=== PATIENT | male | born 1950 | race Caucasian/White ===

== ENCOUNTER → 2022-04-12 08:52 | Outpatient (BNVA) | payer SELFPAY | PROVIDERS: PCP Family Medicine; Visit Provider Nurse Practitioner Family | DX: Z96.0 Presence of urogenital implants (principal); R33.9 Retention of urine, unspecified; N20.0 Calculus of kidney | CPT/HCPCS: 74018 ==

== ENCOUNTER → 2022-05-21 08:06 | Outpatient (BNVA) | payer MEDICAID, SELFPAY | PROVIDERS: PCP Family Medicine; Visit Provider Urology | DX: R33.9 Retention of urine, unspecified (principal) | CPT/HCPCS: 52000; 99213 ==

== ENCOUNTER → 2022-06-09 09:05 | Outpatient (BNVA) | payer MEDICARE, MEDICAID, SELFPAY | PROVIDERS: PCP Family Medicine; Visit Provider Nurse Practitioner Family | DX: R33.9 Retention of urine, unspecified (principal) | CPT/HCPCS: 51700; 99213 ==

== ENCOUNTER → 2022-12-13 15:37 | Outpatient (BNVA) | payer MEDICARE, MEDICAID, SELFPAY | PROVIDERS: PCP Family Medicine; Visit Provider Urology | DX: R33.9 Retention of urine, unspecified (principal) | CPT/HCPCS: 51798; 81003; 99213 ==

== ENCOUNTER 2023-01-06 18:24 | Emergency (ER) | payer MEDICARE, MEDICAID, SELFPAY ==
[2023-01-06 18:39] VITALS: BMI 23.2
--- NOTE | 2023-01-06 18:52 | CTR_ITS ---
PROCEDURE INFORMATION: Exam: CT Abdomen And Pelvis Without Contrast Exam date and time: 01/06/2023 7:04 PM Age: 72 years old Clinical indication: Prior surgery; Surgery date: 6+ months; Patient HX: HX of ruptured appy resulting in ileostomy about 1 year ago, recent abdominal bloating; Additional info: Abd pain TECHNIQUE: Imaging protocol: Computed tomography of the abdomen and pelvis without contrast. Radiation optimization: All CT scans at this facility use at least one of these dose optimization techniques: automated exposure control; mA and/or kV adjustment per patient size (includes targeted exams where dose is matched to clinical indication); or iterative reconstruction. REPORTING DATA: Count of CT and Cardiac NM exams in prior 12 months: This patient has received 0 known CTs and 0 known cardiac nuclear medicine studies in the 12 months prior to the current study. COMPARISON: No relevant prior studies available. RADIATION DOSE METRICS: Total DLP (mGy-cm): 554.53 FINDINGS: Lungs: Emphysematous changes. Right lower lobe atelectasis. Liver: Normal. No mass. Gallbladder and bile ducts: Cholelithiasis. Pancreas: Normal. No ductal dilation. Spleen: Normal. No splenomegaly. Adrenal glands: Normal. No mass. Kidneys and ureters: Normal. No hydronephrosis. Stomach and bowel: Diverticulosis without diverticulitis. Appendix: No evidence of appendicitis. Intraperitoneal space: Unremarkable. No free air. No significant fluid collection. Vasculature: Unremarkable. No abdominal aortic aneurysm. Lymph nodes: Unremarkable. No enlarged lymph nodes. Urinary bladder: Prostate gland enlarged indenting the base of the urinary bladder. Reproductive: See Urinary bladder finding. Bones/joints: Unremarkable. No acute fracture. Soft tissues: Right abdominal ostomy with some herniated bowel loops into the subcutaneous fat without dilation or inflammation. Small bilateral greater than right fat containing inguinal hernias. CT/CT abdomen pelvis wo con [id number] IMPRESSION: 1. Negative for acute inflammatory process in the abdomen pelvis. 2. Emphysematous changes. 3. Right lower lobe atelectasis. 4. Cholelithiasis. 5. Diverticulosis without diverticulitis. 6. Prostate gland enlarged indenting the base of the urinary bladder. 7. Small bilateral greater than right fat containing inguinal hernias. 8. Right abdominal ostomy with some herniated bowel loops into the subcutaneous fat without dilation or inflammation.
--- NOTE | 2023-01-06 18:58 | W.ED.ABDPA2 ---
HPI - Abdominal Pain General: Chief Complaint: Abdominal Pain Stated Complaint: ABDOMINAL DISTENTION/ ILIOSTOMY Time Seen by Provider: 01/06/23 18:40 Source: patient and EMS Mode of arrival: EMS Limitations: no limitations History of Present Illness: 72-year-old male is here from longterm he has a history of an ostomy in the past nursing was concerned he felt his abdomen was getting distended he has stool in his ostomy at this point he denies any pain he denies any fevers denies any worsening or improving factors does have some history of some dementia. Associated Symptoms: Denies chills, diarrhea, dysuria, fever(s), nausea and vomiting Review of Systems Const: Denies: fever(s), chills, body aches or change in appetite Eyes: Denies: blurry vision or eye discomfort ENMT: Denies: throat pain or dental pain Card: Denies: chest pain Resp: Denies: dyspnea GI: Denies: abdominal pain, nausea, vomiting or diarrhea : Denies: dysuria Musc: Denies: neck pain or back pain Skin/Breast: Denies: rash Neuro: Denies: headache(s) Psych: Denies: depression Surya/Lymph: Denies: easy bruising All/Imm: Denies: urticaria PFSH ED PFSH: Medical History CVA (cerebral vascular accident) Hypertension Hypothyroidism Urinary retention Surgical History Hx of ileostomy Family History Father , UNKNOWN No problems noted. Mother , AT AGE 64 No problems noted. Social History Smoking and tobacco status: never smoked Alcohol intake: never Marital status: Single Current occupational status: disabled Physical Exam Const: COMMON NORMALS: no acute distress, patient oriented x3 and healthy appearing HENMT: COMMON NORMALS: normocephalic and atraumatic HEAD & SCALP: normocephalic and atraumatic Eye: COMMON NORMALS: Equal, round and reactive pupils present and EOMs intact bilaterally PUPIL: Yes Equal, round and reactive pupils present Neck/C-Spine: COMMON NORMALS: full ROM and supple Chest: COMMONS NORMALS: normal inspection of the chest and normal palpation of entire chest wall Resp: COMMON NORMALS: normal respiratory effort, No retractions, No use of accessory muscles and clear to auscultation bilaterally AUSCULTATION: clear to auscultation bilaterally Cardio: COMMON NORMALS: regular rate, regular rhythm and No murmurs present (Cardio) RATE: regular rate RHYTHM: regular rhythm GI: COMMON NORMALS: Soft to palpation, non-tender and no masses PALPATION: Yes Soft to palpation OTHER: Patient does have ostomy his stool in the bag he has some mild distention to his abdomen no tenderness abdomen soft Extremity: COMMON NORMALS: normal to inspection and full ROM Neuro: COMMON NORMALS: patient oriented x3, moves all extremities and no focal motor deficits Psych: COMMON NORMALS: mental status grossly normal, Normal thought process present and cooperative THOUGHT PROCESS: Normal thought process present Skin: COMMON NORMALS: no rashes or lesions noted and no wounds GENERAL SKIN EXAM: no rashes or lesions noted Course Vital Signs: Vital signs: Vital Signs Pulse Rate 63 01/06/23 19:04 Respiratory Rate 22 H 01/06/23 19:04 Blood Pressure 145/74 01/06/23 19:04 Pulse Oximetry 96 01/06/23 19:04 MDM - Abdominal Pain Medical Decision Making Patient presents here with some slight abdominal distention exam here is benign his belly is soft he has no pain CT scan showed no acute findings he does have a slight hernia but no signs of obstruction I did speak to Dr. Denny will get him follow-up. He is return if worsening. Lab Data 01/06/23 18:49 01/06/23 18:49 Labs/Radiology: Radiology Impressions Abdomen/Pelvis CT 01/06/23 18:52 IMPRESSION: 1. Negative for acute inflammatory process in the abdomen pelvis. 2. Emphysematous changes. 3. Right lower lobe atelectasis. 4. Cholelithiasis. 5. Diverticulosis without diverticulitis. 6. Prostate gland enlarged indenting the base of the urinary bladder. 7. Small bilateral greater than right fat containing inguinal hernias. 8. Right abdominal ostomy with some herniated bowel loops into the subcutaneous fat without dilation or inflammation. Laboratory Results WBC 11.3 10^3/uL (4.0-10.0) H 01/06/23 18:49 RBC 4.03 10^6/uL (4.1-5.3) L 01/06/23 18:49 Hgb 12.6 g/dL (11.7-16.6) 01/06/23 18:49 Hct 40.6 % (42.0-52.0) L 01/06/23 18:49 MCV 100.7 fl (80-94) H 01/06/23 18:49 MCH 31.3 pg (28.0-34.0) 01/06/23 18:49 MCHC 31.0 g/dL (30.0-36.0) 01/06/23 18:49 RDW 14.1 % (12.1-15.1) 01/06/23 18:49 Plt Count 212 10^3/cmm (130-400) 01/06/23 18:49 MPV 10.8 fL (7.4-10.4) H 01/06/23 18:49 Neut % (Auto) 61.2 % 01/06/23 18:49 Lymph % (Auto) 22.0 % 01/06/23 18:49 [place] % (Auto) 8.6 % 01/06/23 18:49 Eos % (Auto) 6.9 % 01/06/23 18:49 Baso % (Auto) 1.0 % 01/06/23 18:49 Neut # (Auto) 6.95 10^3/uL (1.8-7.7) 01/06/23 18:49 Lymph # (Auto) 2.5 10^3/uL (0.8-4.8) 01/06/23 18:49 [place] # (Auto) 1.0 10^3/uL (0.2-0.9) H 01/06/23 18:49 Eos # (Auto) 0.8 10^3/uL (0.0-0.8) 01/06/23 18:49 Baso # (Auto) 0.1 10^3/uL (0.0-0.1) 01/06/23 18:49 Nucleated RBC % (auto) 0 % 01/06/23 18:49 Nucleated RBCs # 0.0 /100WBC 01/06/23 18:49 Sodium 143 mmol/L (136-145) 01/06/23 18:49 Potassium 4.9 mmol/L (3.5-5.1) 01/06/23 18:49 Chloride 111 mmol/L (98-107) H 01/06/23 18:49 Carbon Dioxide 19 mmol/L (22-29) L 01/06/23 18:49 Anion Gap 17.9 (5-19) 01/06/23 18:49 BUN 36 mg/dL (8-23) H 01/06/23 18:49 Creatinine 2.3 mg/dL (0.7-1.2) H 01/06/23 18:49 GFR Calculation Not Reportable 01/06/23 18:49 Glucose 100 mg/dL (65-115) 01/06/23 18:49 Calculated Osmolality 304 mOsm/kg (285-295) H 01/06/23 18:49 Calcium 8.4 mg/dL (8.5-10.5) L 01/06/23 18:49 Total Bilirubin 0.2 mg/dL (0.15-1.2) 01/06/23 18:49 AST 22 U/L (0-40) 01/06/23 18:49 ALT 28 U/L (0-41) 01/06/23 18:49 Alkaline Phosphatase 109 U/L (40-130) 01/06/23 18:49 Total Protein 7.6 g/dL (6.6-8.7) 01/06/23 18:49 Albumin 4.2 g/dL (3.5-5.2) 01/06/23 18:49 Globulin 3.4 g/dL (1.3-4.6) 01/06/23 18:49 Lipase 92 U/L (13-60) H 01/06/23 18:49 Discharge Plan Discharge Patient Disposition: Home Clinical Impression: Abdominal pain, Hernia Condition: Stable Prescriptions: No Action sulfamethoxazole-trimethoprim [Bactrim DS] 800-160 mg tablet 1 tab PO BID nitrofurantoin monohyd/m-cryst [Macrobid] 100 mg capsule 100 mg PO BID Rx Instructions: must administer with a meal/food Natural Tears (PF) 0.1-0.3 % dropperette 1 drp ophthalmic (eye) TID PRN multivitamin Tablet 1 tab PO DAILY albuterol sulfate 1.25 mg/3 mL solution for nebulization 1.25 mg inhalation Q4H PRN aspirin [Adult Aspirin Regimen] 81 mg tablet,delayed release (DR/EC) 81 mg PO DAILY finasteride 5 mg tablet 5 mg PO DAILY hydralazine 50 mg tablet 50 mg PO BID levothyroxine 50 mcg capsule 50 mcg PO DAILY metoprolol succinate 100 mg tablet extended release 24 hr 100 mg PO BID clopidogrel [Plavix] 75 mg tablet 75 mg PO DAILY potassium chloride 10 mEq tablet extended release 10 meq PO DAILY omeprazole magnesium [Prilosec OTC] 20 mg tablet,delayed release (DR/EC) 20 mg PO DAILY acetaminophen [Tylenol] 325 mg capsule 325 mg PO QID PRN budesonide 0.5 mg/2 mL suspension for nebulization 0.5 mg inhalation BID ipratropium-albuterol 0.5 mg-3 mg(2.5 mg base)/3 mL solution for nebulization 3 ml inhalation Q6H PRN tamsulosin 0.4 mg capsule 0.4 mg PO .at bedtime Qty: 30 12RF Discharge Orders: Discharge ED (Routine); Ordered 01/06/23 Ordered By: Hannah Tai Referrals: Rajinder Denny DO [Physician] - 1-3 days Desean Rice [Primary Care Provider] - Discharge Diet: Advance as tolerated Discharge Activity: Resume usual activity Patient Instructions: Abdominal Pain (ED) Coding Level of Care Code ED Post Secondary Professional for Garth Tate
[2023-01-06 18:59] LABS: Basophils # 0.1 10^3/uL (0.0-0.1); Eosinophils # 0.8 10^3/uL (0.0-0.8); Eosinophils % 6.9 %; Hematocrit 40.6 % (42.0-52.0); Hemoglobin 12.6 g/dL (11.7-16.6); Lymphocytes # 2.5 10^3/uL (0.8-4.8); Mean Corpuscular Hemoglobin 31.3 pg (28.0-34.0); Mean Corpuscular Volume 100.7 fl (80-94); Mean Platelet Volume 10.8 fL (7.4-10.4); Monocytes % 8.6 %; Neutrophils # 6.95 10^3/uL (1.8-7.7); Neutrophils % 61.2 %; Nucleated Red Blood Cells % 0 %; Platelet Count 212 10^3/cmm (130-400); Red Blood Count 4.03 10^6/uL (4.1-5.3); Red Cell Distribution Width 14.1 % (12.1-15.1); White Blood Count 11.3 10^3/uL (4.0-10.0)
[2023-01-06 19:04] VITALS: BP 145/74; PULSE 63; RESP 22; O2SAT 96
[2023-01-06 19:20] LABS: Alanine Aminotransferase 28 U/L (0-41); Albumin Level 4.2 g/dL (3.5-5.2); Alkaline Phosphatase 109 U/L (40-130); Anion Gap 17.9 (5-19); Aspartate Amino Transferase 22 U/L (0-40); Blood Urea Nitrogen 36 mg/dL (8-23); Calcium 8.4 mg/dL (8.5-10.5); Carbon Dioxide 19 mmol/L (22-29); Chloride 111 mmol/L (98-107); Globulin 3.4 g/dL (1.3-4.6); Glucose 100 mg/dL (65-115); Lipase 92 U/L (13-60); Osmolality Calculated 304 mOsm/kg (285-295); Potassium 4.9 mmol/L (3.5-5.1); Sodium 143 mmol/L (136-145); Total Bilirubin 0.2 mg/dL (0.15-1.2); Total Protein 7.6 g/dL (6.6-8.7)
[2023-01-06 20:48] VITALS: BP 131/78; PULSE 64; RESP 19; O2SAT 97
== END 2023-01-06 20:54 | disposition home or self-care (01) ==
PROVIDERS: Emergency Provider Emergency Medicine; PCP Family Medicine
DX: K40.20 Bilateral inguinal hernia, without obstruction or gangrene, not specified as recurrent (principal); K94.09 Other complications of colostomy; K80.20 Calculus of gallbladder without cholecystitis without obstruction; K57.90 Diverticulosis of intestine, part unspecified, without perforation or abscess without bleeding; Z79.82 Long term (current) use of aspirin; Z86.73 Personal history of transient ischemic attack (TIA), and cerebral infarction without residual deficits; I10 Essential (primary) hypertension
CPT/HCPCS: 74176; 80053; 83690; 85025; 99284

== ENCOUNTER → 2023-02-02 13:27 | Outpatient (BNVA) | payer MEDICARE, MEDICAID, SELFPAY | PROVIDERS: PCP Family Medicine; Visit Provider Surgery | DX: K43.5 Parastomal hernia without obstruction or gangrene (principal) | CPT/HCPCS: 99203 ==

== ENCOUNTER 2024-03-07 02:53 | Emergency (ER) | payer MEDICARE, MEDICAID, SELFPAY ==
[2024-03-07] VITALS (11 sets, daily range): BP systolic 119–181; BP diastolic 55–87; PULSE 58–78; RESP 17–22; TEMP 37.1; O2SAT 90–96; BMI 32.3
--- NOTE | 2024-03-07 02:57 | CTR_ITS ---
PROCEDURE INFORMATION: Exam: CT Abdomen And Pelvis With Contrast Exam date and time: 03/07/2024 3:55 AM Age: 74 years old Clinical indication: Abdominal pain; Prior surgery; Surgery date: 6+ months; Surgery type: Ileostomy, appy; Additional info: Abd pain TECHNIQUE: Imaging protocol: Computed tomography of the abdomen and pelvis with contrast. Radiation optimization: All CT scans at this facility use at least one of these dose optimization techniques: automated exposure control; mA and/or kV adjustment per patient size (includes targeted exams where dose is matched to clinical indication); or iterative reconstruction. Contrast material: OMNI 350; Contrast volume: 100 ml; Contrast route: INTRAVENOUS (IV); COMPARISON: CT abdomen pelvis wo con [id number] 01/06/2023 7:04 PM RADIATION DOSE METRICS: Total DLP (mGy-cm): 929.3 FINDINGS: Liver: Normal. No mass. Gallbladder and bile ducts: Abnormal density within the gallbladder. Findings may be related gallstones/sludge. Neoplasm not excluded. Evaluation with ultrasound for better delineation. Pancreas: Normal. No ductal dilation. Spleen: Normal. No splenomegaly. Adrenal glands: Normal. No mass. Kidneys and ureters: Normal. No hydronephrosis. Stomach and bowel: Ileostomy in the right lower quadrant with peristomal herniation of bowel. Mild dilatation with small bowel feces sign and inflammation of the bowel proximal and within the ostomy. Decompression of the bowel distal to the ostomy. Appendix: The appendix is surgically removed. Intraperitoneal space: Unremarkable. No free air. No significant fluid collection. Vasculature: Atherosclerotic change of the abdominal vasculature. Lymph nodes: Unremarkable. No enlarged lymph nodes. Urinary bladder: Unremarkable as visualized. Reproductive: Unremarkable as visualized. Bones/joints: Unremarkable. No acute fracture. Soft tissues: Fat containing inguinal hernias. CT/CT abdomen pelvis w con* [id number] IMPRESSION: 1. Ileostomy in the right lower quadrant with mild dilatation, small bowel feces sign and inflammation of the bowel proximal and within the ostomy. Decompression of the bowel distal to the ostomy findings are suggestive peristomal hernia with bowel obstruction at the ostomy site. 2. Abnormal density within the gallbladder. This may be related to gallstones/sludge. Neoplasm not excluded. Further evaluation with ultrasound is recommended for better delineation.
--- NOTE | 2024-03-07 02:58 | ECG_ITS ---
[facility] Test Date: 2024-03-07 Pat Name: Mike Garcia Department: Room: Gender: Male Marketing Research Analyst: : 1950 Requested By: Hannah Tai Order Number: [id number] Wyatt MD: Bk Lafleur M.D. Measurements Intervals [place] Rate: 67 P: 44 [place]: 157 QRS: -17 QRSD: 110 T: 54 QT: 389 QTc: 411 Interpretive Statements SINUS RHYTHM INCOMPLETE RIGHT BUNDLE BRANCH BLOCK [90+ ms QRS DURATION, TERMINAL R IN V1/V2, 40+ ms S IN I/aVL/V4/V5/V6] SEPTAL MYOCARDIAL INFARCTION , OF INDETERMINATE AGE [40+ ms Q WAVE IN V1/V2] No previous ECG available for comparison Electronically Signed On 03-07-2024 16:50:38 CDT by Bk Lafleur M.D. [email or web address]
--- NOTE | 2024-03-07 02:58 | ED_ITS ---
HPI - Abdominal Pain 2 General: Chief Complaint: Chest Pain Stated Complaint: CP Time Seen by Provider: 03/07/24 02:54 Source: patient and EMS Mode of arrival: EMS Limitations: no limitations History of Present Illness: 74-year-old male who is here from [facility] had a history of a parastomal hernia in the past he had abdominal [facility] in the [facility] roughly 4 hours ago he started having epigastric abdominal pain he denies any chest pain to me he points to his abdomen states it is worse with palpation denies any vomiting or diarrhea. Associated Symptoms: Denies chills, diarrhea, dysuria, fever(s), nausea and vomiting Review of Systems 2 Const: Denies: fever(s), chills, body aches or change in appetite ENMT: Denies: throat pain or dental pain Card: Denies: chest pain Resp: Denies: dyspnea GI: Reports: abdominal pain; Denies: nausea, vomiting or diarrhea : Denies: dysuria Musc: Denies: neck pain or back pain Skin/Breast: Denies: rash Neuro: Denies: headache(s) PFSH ED 2 PFSH: Medical History Dementia Urinary obstruction Hypothyroidism Hypertension Urinary retention CVA (cerebral vascular accident) Surgical History History of appendectomy Hx of ileostomy Ileostomy status Family History Father , UNKNOWN No problems noted. Mother , AT AGE 64 No problems noted. Social History Smoking and tobacco/nicotine status: never used tobacco/nicotine Alcohol intake: never Substance/Drug Use: never Marital status: Single Current occupational status: disabled Physical Exam 2 Const: COMMON NORMALS: no acute distress, patient oriented x3 and healthy appearing HENMT: COMMON NORMALS: normocephalic and atraumatic HEAD & SCALP: n ormocephalic and atraumatic Neck/C-Spine: COMMON NORMALS: full ROM and supple Chest: COMMONS NORMALS: normal inspection of the chest Resp: COMMON NORMALS: normal respiratory effort, No retractions, No use of accessory muscles and clear to auscultation bilaterally AUSCULTATION: clear to auscultation bilaterally Cardio: COMMON NORMALS: regular rate, regular rhythm and No murmurs present (Cardio) RATE: regular rate RHYTHM: regular rhythm GI: COMMON NORMALS: Normal to inspection, nondistended, normoactive bowel sounds present, Soft to palpation and no masses PALPATION: Yes Soft to palpation OTHER: epigastric tenderness Extremity: COMMON NORMALS: normal to inspection and full ROM Neuro: COMMON NORMALS: patient oriented x3, moves all extremities and no focal motor deficits Psych: COMMON NORMALS: mental status grossly normal, Normal thought process present and cooperative THOUGHT PROCESS: Normal thought process present Skin: COMMON NORMALS: no rashes or lesions noted and no wounds GENERAL SKIN EXAM: no rashes or lesions noted Course 2 Vital Signs: Vital signs: Vital Signs Temperature 98.7 F 03/07/24 02:54 Pulse Rate 67 03/07/24 05:06 Respiratory Rate 20 H 03/07/24 05:06 Blood Pressure 129/73 03/07/24 05:06 Pulse Oximetry 91 03/07/24 05:06 Oxygen Delivery Me thod Nasal Cannula 03/07/24 04:15 Oxygen Flow Rate 2 03/07/24 04:15 MDM - Abdominal Pain Medical Decision Making Patient presents here with abdominal pain he is tender in right upper quadrant his ultrasound showed gallbladder sludge with stones and common bile duct dilatation he does have elevated bilirubin and lipase concerning for a common bile duct obstruction did speak to [facility] will transfer there for higher level care Medical Records I reviewed the patient's medical records. Lab Data I reviewed the patient's lab results. 03/07/24 03:16 03/07/24 03:16 Labs/Radiology: Radiology Impressions Abdomen/Pelvis CT 03/07/24 02:57 IMPRESSION: 1. Ileostomy in the right lower quadrant with mild dilatation, small bowel feces sign and inflammation of the bowel proximal and within the ostomy. Decompression of the bowel distal to the ostomy findings are suggestive peristomal hernia with bowel obstruction at the ostomy site. 2. Abnormal density within the gallbladder. This may be related to gallstones/sludge. Neoplasm not excluded. Further evaluation with ultrasound is recommended for better delineation. ADDENDUM: 03/07/24 0522 THIS REPORT CONTAINS FINDINGS THAT MAY BE CRITICAL TO PATIENT CARE. The findings were verbally communicated via telephone conference with HANNAH ARMSTRONG at 5:09 AM CDT on 03/07/2024. The findings were acknowledged and understood. Chest X-Ray 03/07/24 03:14 IMPRESSION: No acute findings. Gallbladder Ultrasound 03/07/24 04:04 IMPRESSION: Gallstones, sludge and abnormal soft tissue density/wall thickening in the gallbladder wall. Neoplasm not excluded. Dilatation of the common bile duct measuring 8 mm. Laboratory Results WBC 14.19 10^3/uL (3.29-11.43) H 03/07/24 03:16 RBC 4.35 10^6/uL (3.85-5.65) 03/07/24 03:16 Hgb 12.70 g/dL (11.27-16.99) 03/07/24 03:16 Hct 40.1 % (37-53) 03/07/24 03:16 MCV 92.2 fl (82-101) 03/07/24 03:16 MCH 29.2 pg (27-33) 03/07/24 03:16 MCHC 31.7 g/dL (30-55) 03/07/24 03:16 RDW 15.0 % (12.1-15.1) 03/07/24 03:16 Plt Count 275 10^3/cmm (157-399) 03/07/24 03:16 MPV 10.5 fL (7.4-10.4) H 03/07/24 03:16 Neut % (Auto) 81.8 % 03/07/24 03:16 Lymph % (Auto) 9.5 % 03/07/24 03:16 [place] % (Auto) 8.1 % 03/07/24 03:16 Eos % (Auto) 0.1 % 03/07/24 03:16 Baso % (Auto) 0.1 % 03/07/24 03:16 Neut # (Auto) 11.61 10^3/uL (1.8-7.7) H 03/07/24 03:16 Lymph # (Auto) 1.4 10^3/uL (0.8-4.8) 03/07/24 03:16 [place] # (Auto) 1.2 10^3/uL (0.2-0.9) H 03/07/24 03:16 Eos # (Auto) 0.0 10^3/uL (0.0-0.8) 03/07/24 03:16 Baso # (Auto) 0.0 10^3/uL (0.0-0.1) 03/07/24 03:16 Nucleated RBC % (auto) 0 % 03/07/24 03:16 Nucleated RBCs # 0.0 /100WBC 03/07/24 03:16 Sodium 142 mmol/L (136-145) 03/07/24 03:16 Potassium 4.2 mmol/L (3.5-5.1) 03/07/24 03:16 Chloride 107 mmol/L (98-107) 03/07/24 03:16 Carbon Dioxide 26 mmol/L (22-29) 03/07/24 03:16 Anion Gap 13.2 (5-19) 03/07/24 03:16 BUN 20 mg/dL (8-23) 03/07/24 03:16 Creatinine 1.5 mg/dL (0.7-1.2) H 03/07/24 03:16 GFR Calculation Not Reportable 03/07/24 03:16 Glucose 143 mg/dL (65-115) H 03/07/24 03:16 Calculated Osmolality 299 mOsm/kg (285-295) H 03/07/24 03:16 Lactic Acid 1.2 mmol/L (0.5-2.2) 03/07/24 03:16 Calcium 8.9 mg/dL (8.5-10.5) 03/07/24 03:16 Total Bilirubin 2.8 mg/dL (0.15-1.2) H 03/07/24 03:16 AST 301 U/L (0-40) H 03/07/24 03:16 ALT 302 U/L (0-41) H 03/07/24 03:16 Alkaline Phosphatase 449 U/L (40-130) H 03/07/24 03:16 Total Protein 7.7 g/dL (6.6-8.7) 03/07/24 03:16 Albumin 3.7 g/dL (3.5-5.2) 03/07/24 03:16 Globulin 4.0 g/dL (1.3-4.6) 03/07/24 03:16 Lipase > 3008 U/L (13-60) H 03/07/24 03:16 All radiology interpretation(s) finalized by discharge EKG Data EKG 1: I personally reviewed and interpreted this EKG as follows: EKG interpretation date: 03/07/24 EKG interpretation time: 02:59 Interpretation: nsr hr [address] elevation qrs 110 qtc 404 Discharge Plan Discharge Patient Disposition: Xfer Short-Term Hosp Clinical Impression: Parastomal hernia, Common bile duct obstruction Referrals: Desean Rice [Primary Care Provider] - Coding Level of Care Code ED 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
[2024-03-07] MEDS: ondansetron 2 mg/ML SDV 2 mL 4 MG IVP (03:10)
[2024-03-07] MEDS: morphine 4 mg/mL SDV 1 mL IVP (03:12)
--- NOTE | 2024-03-07 03:14 | XRR_ITS ---
PROCEDURE INFORMATION: Exam: XR Chest Exam date and time: 03/07/2024 3:21 AM Age: 74 years old Clinical indication: Angina; Additional info: Abd pain TECHNIQUE: Imaging protocol: Radiologic exam of the chest. Views: 1 view. COMPARISON: CT abdomen pelvis con [id number] 01/06/2023 7:04 PM FINDINGS: Lungs: Unremarkable. No consolidation. Pleural spaces: Unremarkable. No pleural effusion. No pneumothorax. Heart/Mediastinum: Unremarkable. No cardiomegaly. Bones/joints: Unremarkable. XR/XR chest 1V portable [id number] IMPRESSION: No acute findings.
[2024-03-07 03:21] LABS: Basophils % 0.1 %; Eosinophils % 0.1 %; Hematocrit 40.1 % (37-53); Lymphocytes # 1.4 10^3/uL (0.8-4.8); Lymphocytes % 9.5 %; Mean Corpuscular HGB Conc 31.7 g/dL (30-55); Mean Corpuscular Hemoglobin 29.2 pg (27-33); Mean Corpuscular Volume 92.2 fl (82-101); Mean Platelet Volume 10.5 fL (7.4-10.4); Monocytes # 1.2 10^3/uL (0.2-0.9); Monocytes % 8.1 %; Neutrophils # 11.61 10^3/uL (1.8-7.7); Neutrophils % 81.8 %; Nucleated Red Blood Cells % 0 %; Platelet Count 275 10^3/cmm (157-399); Red Blood Count 4.35 10^6/uL (3.85-5.65); White Blood Count 14.19 10^3/uL (3.29-11.43)
--- NOTE | 2024-03-07 03:21 | PC.NURSE ---
placed pt on 2L NC after morphine administration for O2 saturation in mid to high 80s, O2 in low to mid 90s after O2 administration
[2024-03-07 03:41] LABS: Alanine Aminotransferase 302 U/L (0-41); Albumin Level 3.7 g/dL (3.5-5.2); Alkaline Phosphatase 449 U/L (40-130); Anion Gap 13.2 (5-19); Aspartate Amino Transferase 301 U/L (0-40); Blood Urea Nitrogen 20 mg/dL (8-23); Calcium 8.9 mg/dL (8.5-10.5); Carbon Dioxide 26 mmol/L (22-29); Chloride 107 mmol/L (98-107); Glucose 143 mg/dL (65-115); Osmolality Calculated 299 mOsm/kg (285-295); Potassium 4.2 mmol/L (3.5-5.1); Sodium 142 mmol/L (136-145); Total Bilirubin 2.8 mg/dL (0.15-1.2); Total Protein 7.7 g/dL (6.6-8.7)
[2024-03-07 03:42] LABS: Lactic Sepsis W/Reflex 1.2 mmol/L (0.5-2.2)
[2024-03-07] MEDS: iohexol 350 mg/mL 500 mL Btl (per mL) IV (03:58)
[2024-03-07 04:02] LABS: Lipase > 3008 U/L (13-60)
--- NOTE | 2024-03-07 04:04 | USR_ITS ---
PROCEDURE INFORMATION: Exam: US Abdomen, Limited; Right Upper Quadrant Exam date and time: 03/07/2024 4:24 AM Age: 74 years old Clinical indication: Abdominal pain; Other: Patient is unresponsive; Additional info: Abd pain TECHNIQUE: Imaging protocol: Real time ultrasound of the abdomen with image documentation. Limited exam focused on the right upper quadrant. COMPARISON: CT abdomen pelvis w con* [id number] 03/07/2024 3:55 AM FINDINGS: Liver: Normal. No masses. Gallbladder: Gallstones and sludge with focal areas of gallbladder wall thickening/soft tissue mass. Biliary ducts: Dilatation of the common bile duct measuring 8 mm. Pancreas: Visualized pancreas is unremarkable. Right kidney: Normal. No mass. No hydronephrosis. US/US gall bladder [id number] IMPRESSION: Gallstones, sludge and abnormal soft tissue density/wall thickening in the gallbladder wall. Neoplasm not excluded. Dilatation of the common bile duct measuring 8 mm.
[2024-03-07] MEDS: piperacillin-tazobactam 3.375 GM in sodium chloride 0.9% (plus) 50 ML IV ×2 (05:35→13:09)
--- NOTE | 2024-03-07 08:18 | PC.NURSE ---
this nurse updated family on pt status and transfer status, no further questions or concerns verbalized at this time.
--- NOTE | 2024-03-07 12:35 | PC.NURSE ---
report called to Sybil Pfeiffer at [facility] in [place] to unit 3A bed 3102. No further questions verbalized at end of report.
--- NOTE | 2024-03-07 14:38 | PC.NURSE ---
report given to [facility] and pt left facility at approx [phone]
== END 2024-03-07 14:53 | disposition short-term general hospital (02) ==
PROVIDERS: Emergency Provider Emergency Medicine; PCP Family Medicine
DX: K43.5 Parastomal hernia without obstruction or gangrene (principal); K83.1 Obstruction of bile duct; F03.90 Unspecified dementia, unspecified severity, without behavioral disturbance, psychotic disturbance, mood disturbance, and anxiety; I10 Essential (primary) hypertension; Z86.73 Personal history of transient ischemic attack (TIA), and cerebral infarction without residual deficits
CPT/HCPCS: 71045; 74177; 76705; 80053; 83605; 83690; 85025; 93005; 96366; 96374; 96375; 99285; J2270; J2405; J2543; Q9967